=== PATIENT | male | born 1970 | race Caucasian/White ===

== ENCOUNTER 2018-04-23 08:30 | Emergency (ER) | payer OTHER ==
[2018-04-23] MEDS ORDERED: TDAP ADULT 0.5 ML INJ (BOOSTRIX) IM ONE (08:31)
--- NOTE | 2018-04-23 09:01 | EDPHY ---
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 He was holding a 1/2 inch copper pipe up above his head when it fell striking him in the face. He was not knocked out. He denies vision changes or getting injury to the eye. He states it happened about 745 this morning. He came with his boss to the emergency department for evaluation. Unknown last tetanus. REVIEW OF SYSTEMS: Negative except per HPI. General Appearance: Alert, no distress. Eyes: Pupils equal and round no icterus HEENT: Large horizontal laceration from the middle of the nose laterally on the left. Approximately 5 cm, gaping, brisk bleeding. Does not involve the eyelid, medial canthus or nares. No blood in posterior oropharynx. No obvious epistaxis. Respiratory: No respiratory distress Neurological: Awake, alert, no focal deficits. Skin: Warm and dry, no rashes. Musculoskeletal: Neck is supple nontender. Extremities are symmetrical, full range of motion, no edema. Psychiatric: Patient is oriented X 3, there is no agitation. Medical/surgical history: Noncontributory Social history: No tobacco, rare alcohol. Smoking Status: Never smoked Constitutional: Initial Vital Signs Temperature (C) 36.5 C 04/23/18 08:32 Heart Rate 77 04/23/18 08:32 Respiratory Rate 16 04/23/18 08:32 Blood Pressure 153/91 H 04/23/18 08:32 O2 Sat (%) 97 04/23/18 08:32 O2 Delivery Mode Room Air Allergies/Adverse Reactions: No Known Allergies Allergy (Unverified 04/23/18 08:31) Home Medications: Medication Instructions Recorded NK [No Known Home Meds] 04/23/18 Medical Decision Making Procedures: Procedure: Laceration repair. Verbal consent was obtained from the patient. The large horizontal laceration on the left face was anesthetized in the usual fashion with 10 mils of 0.5% bupivacaine with epi. The wound was irrigated, draped and explored to its base with a gloved finger. There were no deep structures involved. No tendon injury was identified. The wound was repaired with 2 subcutaneous interrupted sutures with 4 0 Vicryl and 14 cutaneous sutures, interrupted, 5 0 Prolene.. The wound repair was well-approximated bleeding controlled. The procedure was performed by myself at 10:45 a.m.. Differential Diagnosis: Patient with large facial laceration after dropping copper pipe while at work. No other injuries evident or reported. No involvement of lacrimal duct, nasal cavity, oropharynx or subcutaneous air in orbits. Discussed wound care, prevention of scarring, signs and symptoms of infection and indications to return. Suture removal in 5 days. Tetanus vaccination updated. Stable for discharge. - Data Points Medications Given: Discontinued Medications Diphtheria/Tetanus/Acell Pertussis (Boostrix) 0.5 ml IM .ONCE ONE Stop: 04/23/18 08:32 Last Admin: 04/23/18 10:01 Dose: 0.5 ml Departure - Departure Clinical Impression: Laceration Condition: Good Instructions: Facial Laceration (ED) Additional Instructions: Keep clean and dry, use water and a little soap twice daily to clean wound. You should be able to see all the sutures, do not let scab formed. Apply antibiotic ointment and keep covered when at work. Talk with your boss about follow-up, you could go to a workman's comp clinic in [place] for suture removal or you can return here for suture removal in 5 days. Print Language: Czech
[2018-04-23 10:41] VITALS: BP 145/83
== END 2018-04-23 10:20 | disposition home or self-care (01) ==
LOC: CED 08:30
PROC: 0HQ1XZZ Repair Face Skin, External Approach (ICD-10-PCS; principal; 2018-04-23)
DX: S01.81XA Laceration without foreign body of other part of head, initial encounter (principal); W20.8XXA Other cause of strike by thrown, projected or falling object, initial encounter; Y99.0 Civilian activity done for income or pay; Z23 Encounter for immunization